=== PATIENT | female | born 1950 | race Caucasian/White ===

== ENCOUNTER 2024-10-25 15:55 | Outpatient (CLI) | payer MEDICARE, SELFPAY ==
--- NOTE | ~2024-10-25 | MM_ITS ---
EXAMINATION: MM screening [facility] BI w peret HISTORY: Screening TECHNIQUE: Craniocaudal and mediolateral oblique 3-D tomosynthesis images were obtained and synthetic 2-D images were generated. CAD analysis was submitted and interpreted. COMPARISON: Comparison to multiple prior studies sequentially, with oldest reviewed study dated 2011. BREAST PARENCHYMAL COMPOSITION: There are scattered areas of fibroglandular density. FINDINGS: There is no evidence of suspicious mass, calcification, or architectural distortion to sug gest malignancy in either breast. Scattered benign-appearing calcifications are present. IMPRESSION: 1. No mammographic evidence of malignancy. 2. Recommend routine screening mammography in one year. BI-RADS Category 2: Benign finding(s). Reviewed, dictated and finalized at location B.
--- OUTSIDE RECORDS SUMMARY | 2024-10-25 16:04 | XMS_ITS | Data Portability ---
Author Organization [facility], Main Office Address [address] [place] [address] Care Team Providers Care Manager Acquisition Name Role Phone JORGE PENN Primary Care Provider Assessment Encounter Date Assessment Date Assessment LastModified by Organization Details LastModified Time 08/18/2022 08/18/2022 D/w pt and her about her findings and further plan of care. Explained about different options for her. Meds as directed. OTC Benadryl allergy po q6-8hrs prn as directed. Routine skin care explained in detail. Educated about alarming symptoms to monitor at home and call us back or get checked in ED in that case. Pt verbalized understanding it. F/u with Ophtho in few days if any worsening symptoms/vision changes. F/u in few weeks as directed. [email or web address] Not available 08/18/2022 11:28:46 09/08/2022 09/08/2022 71 yo F with - WELL ADULT VISIT - HTN, Stable - HLD, Stable - GOUT, Stable - OSTEOPENIA - RT SHOULDER OA, Moderate; S/P ARTHROPLASTY - SPASMOIDIC DYSPHONIA - OVERWEIGHT Annual labs: 02/26/21. Annual labs: 11/11/19. Annual labs: 07/28/18. Annual labs: 06/09/17. X-ray Rt shoulder: 03/18/17. D/w pt in detail about her conditions, recent labs & imagines and further plan of care. Will do routine labs. All meds verified with pt. Meds as directed. Diet and exercise explained in detail. BP diary education given and advised to call us if any concerns. Fall risk precautions explained. Cont f/u with Ophtho as per schedule. Cont f/u with Ortho at [facility] as per schedule. Cont f/u with ENT at [facility] as per schedule. Cont f/u with Dr. Nolasco (Gyne) as per schedule. Cont f/u with GI at [facility] as per schedule. Pt has done PT, OT and ST. Pt declined for any prescription pain med. Pt has already seen speech specialist at [facility] and she doesn't want to got for injections. HM: WWE - 05/26, normal as per pt. Cont f/u with Gyne as per their recommendations. Mammo - 04/17/22, normal. Colonoscopy - 08/18/18, normal. Cont f/u with GI as per schedule (10 yrs). DEXA - 02/13/21, Osteopenia ++. Tdap - 11/16. Flu - 01/16/21. Pneumo - 11/22/19. Shingrix - At pharmacy/HD. F/u in 2-3 weeks. Annual labs in 09/26. Not available 09/08/2022 11:33:23 Plan of Treatment Reminders Order Date Submit Date Provider Last Modified By Organization Details Last Modified Time Details Appointments None recorded. Lab uric acid, serum or plasma 2022 023 [email or web address] Not available 3 17:37:15 HbA1c (hemoglobin A1c), blood 2022 023 [email or web address] Not available 3 17:37:14 CBC w/ auto diff 2022 023 LISA Not available 3 08:46:03 CMP, serum or plasma 2022 023 [email or web address] Not available 3 17:37:14 urinalysis complete, reflex culture 2022 023 [email or web address] Not available 3 17:37:14 lipid panel, serum 2022 023 [email or web address] Not available 3 17:37:15 TSH, serum, reflex free T4 2022 023 [email or web address] Not available 3 17:37:15 Referral None recorded. Procedures None recorded. Surgeries None recorded. Imaging MAMMO, screening, digital, bilateral 2023 024 [email or web address] Not available 4 08:51:14 Medication Orders Calcium 600 + D(3) 600 mg-10 mcg (400 unit) tablet 2022 023 LISA [id number], [address], [place], [id number], 11:35:14 Solu-Medrol (PF) 125 mg/2 mL solution for injection 2022 023 [email or web address] Not available 11:15:48 hydroxyzine HCl 25 mg tablet 2022 023 [email or web address] [facility] #[id number], [address], [place], [phone], 11:35:24 Patient TargetsNo targets recorded. Patient InstructionsNo instructions recorded. Reason for Referral None Reported. Results Created Date Observation Date Name Description Value Unit Range Abnormal Flag Note LastModifiedBy Organization Detail LastModifiedTime 08/21/19 22 08/20/2021 HEMOG LOBIN A1C HA1C 5.1 % 4.0-6. 0 Diabe aileen Carol keene Crite ab: <5.7% Consi stent with absen ce of diabe aileen 5.7-6 .4% Consi stent with incre ased risk for diabe aileen (pred iabet es) >OR=6 .5% Consi stent with diabe aileen REFER ENCE: Diabe aileen Care 2016, 39(Canales ppl.1 ):s13 -s22 Not Available [facility] ([facility]) [address], [place], [address], 08/20/2021 19:07:28 04/17/19 23 MAMMO , scree jassi, digit al, bilat eral [facility] [address], [place] [address] Patien t Name: CHERISE GOMEZ Access ion #: [id number] Sex: F : 1950 5 Locati on: RA2 Attend ing Physic josh: TRISTA PENN Orderi ng Physic josh: TRISTA PENN Exam Date: 023 8:58 AM Exam Name: DIGITA L MATA BILAT SCREEN Admitt ing Diagno sis(es ): RADIOL OGY REPORT - FINAL EXAM: MG DIGITA L MATA BILAT SCREEN HISTOR Y: screen ing 71-yea r-old female with no curren t breast compla ints. COMPAR RODRIGO: 2020, 2019, 2017 TECHNI QUE: Bilate ral CC and MLO views of the breast s were perfor med. Digita l Mammog dot images were obtain ed. CAD (compu ter assist ed detect ion) was utiliz ed. FINDIN GS: There are scatte red areas of fibrog landul ar densit y. No new masses , develo ping asymme tries, suspic ious calcif icatio ns, or tiffany ectura l distor tion are seen. Page 1 of 2 [facility] Lula kelley Name: CHERISE GOMEZ Access ion #: [id number] Sex: F : 1950 6 Exam Date: 023 8:58 AM Exam Name: DIGITA L MATA BILAT SCREEN Admitt ing Diagno sis(es ): IMPRES BONG: BIRADS 1: Assess ment comple te. Negati ve. Recomm end annual screen ing mammog dot. Accord ing to the [employer], yearly mammog katherine are recomm ended starti ng at age 40 and contin uing as long as the woman is in good health . Clinic al Breast Exam should be part of the period health exam-a bout every 3 years for women in their 20s and 30s and every year for women 40 and over. Breast self-e xam is an option for women in their 20s. Any breast change noted on the breast self-e xam she would be report ed prompt ly [facility]. A negati ve mammog dot report should not discou rage follow -up or biopsy of a clinic ally signif icant findin g and/or abnorm ality. Dense breast tissue may obscur e small neopla sms. This lula kelley has been entere d into a mammog dot remind er system with a target date for her next mammog carroll. Create d and electr onical ly signed by: Chet fritz MD Signed Date: 10:34 AM (CT) Dictat ed by: Chet fritz MD DD: 10:34 AM (CT) DT: 10:34 AM (CT) Page 2 of 2 [email or web address] [facility] ([facility]) [address] [place], [address], 08/18/2022 11:17:51 05/28/19 24 05/28/2023 MAMMO , scree jassi, digit al, bilat eral No observ ation record ed. [email or web address] [facility] [address] [place], [address], 06/02/2023 10:58:01 Result Notes Documentation Provider Name and Address Organization Details Recorded Time Mammo, Screening, Digital, Bilateral : [facility] [address] [place] [address] Patient Name: CHERISE GOMEZ Sex: F : 1950 Location: [facility] Attending Physician: JORGE PENN Ordering Physician: JORGE PENN Exam Date: 04/17/2022 8:58 AM Exam Name: MG DIGITAL MATA BILAT SCREEN Admitting Diagnosis(es): RADIOLOGY REPORT - FINAL EXAM: MG DIGITAL MATA BILAT SCREEN HISTORY: screening 71-year-old female with no current breast complaints. COMPARISON: 02/13/2021, 11/25/2019, 07/27/2017 TECHNIQUE: Bilateral CC and MLO views of the breasts were performed. Digital Mammography images were obtained. CAD (computer assisted detection) was utilized. FINDINGS: There are scattered areas of fibroglandular density. No new masses, developing asymmetries, suspicious calcifications, or architectural distortion are seen. Page 1 of 2 [facility] Patient Name: CHERISE GOMEZ Sex: F : 1950 Exam Date: 04/17/2022 8:58 AM Exam Name: MG DIGITAL MATA BILAT SCREEN Admitting Diagnosis(es): IMPRESSION: BIRADS 1: Assessment complete. Negative. Recommend annual screening mammography. According to the [employer], yearly mammograms are recommended starting at age 40 and continuing as long as the woman is in good health. Clinical Breast Exam should be part of the periodic health exam-about every 3 years for women in their 20s and 30s and every year for women 40 and over. Breast self-exam is an option for women in their 20s. Any breast change noted on the breast self-exam she would be reported promptly to the patient's health care provider. A negative mammography report should not discourage follow-up or biopsy of a clinically significant finding and/or abnormality. Dense breast tissue may obscure small neoplasms. This patient has been entered into a mammography reminder system with a target date for her next mammogram. Created and electronically signed by: Chet Jimenez MD Signed Date: 04/17/2022 10:34 AM (CT) Dictated by: Chet Jimenez MD (CT) (CT) Page 2 of 2 Jorge Penn MD [address] [place] [address], [phone], [facility] 08/18/2022 11:17:51 Problems Name Problem SNOMED Code Status Onset Date Resolution Date Notes Provider Name and Address Organization Details Recorded Time Laceratio n of hand 266557947 Completed Not Available [facility] 3 02:38:46 Spastic dysphonia 42754941 Active Not Available [facility] 3 08:17:41 Knee pain Completed Not Available [facility] 3 02:38:46 Contact dermatiti s 38839769 Completed Not Available [facility] 3 02:38:47 Eczema 20858110 Active Not Available [facility] 3 08:17:41 Pain of shoulder region 36392869 Completed Not Available [facility] 3 02:38:47 Pain of hip region 53346592 Completed Not Available [facility] 3 02:38:47 Essential hypertens ion 34667500 Completed Not Available [facility] 3 02:38:47 Disorder of the larynx 49575749 Active Not Available [facility] 3 08:17:41 Rhinitis 86103362 Completed Not Available [facility] 3 02:38:47 Pain of right shoulder joint 46799063501 000693 Active 2016 Not Available [facility] 3 08:17:41 Osteoarth ritis 328544260 Active 2017 Not Available [facility] 3 08:17:41 Hyperuric emia 20868701 Completed 201711/08/2019 Not Available [facility] 3 02:38:46 Dyslipide keira 208059089 Active 2017 Not Available [facility] 3 08:17:41 Hyperlipi demia 59099294 Active 2017 Not Available [facility] 3 08:17:41 Gout 66741759 Active 2018 Not Available [facility] 3 08:17:41 Overweigh t 181630889 Active 2019 Not Available [facility] 3 08:17:41 Hypertens eyad disorder 04091554 Active 2019 Not Available [facility] 3 08:17:41 Osteopeni a 897899809 Active 2020 Not Available [facility] 3 08:17:41 Impaired fasting glycemia 682796819 Active 2020 Not Available [facility] 3 08:17:41 Adult health examinati on Active 2021 Not Available [facility] 3 08:17:41 Contact dermatiti s caused by urushiol from [facility] 757451167 Active 2021 Not Available [facility] 3 08:17:41 Itching of skin 058981638 Active 2022 Not Available [facility] 3 08:17:41 Swelling of eyelid 890707353 Active 2022 Not Available [facility] 3 08:17:41 Screening for malignant neoplasm of breast Active 2023 AIMEE Carr [address] [facility], [facility] [address], [place], [address] , [facility] [place] [facility] 4 14:33:21 Notes:OSTEOARTHRITIS Problem Notes None recorded. Procedures Surgical History Date Name Laterality Status Provider Name and Address Organization Details Recorded Time 9 Hip surgery completed Sneha Sequeira RN [facility] [employer] [facility] 05/20/2023 14:18:11 9 Shoulder joint surgery completed Sneha Sequeira RN [facility] [employer] [facility] 05/20/2023 14:18:29 4 Back Surgeries completed Sneha Sequeira RN [facility] [employer] [facility] 05/20/2023 14:19:01 Imaging Results None recorded. Procedure Notes None recorded. Medical Equipment None Reported. Allergies No known drug allergies Medications Name Sig Start Date Stop Date Status Note LastModified by Organization Details LastModified Time losartan 50 mg tablet TAKE 1 TABLET BY MOUTH EVERY DAY active Not Available Not Available No t Available celecoxib 200 mg capsule Take 1 capsule every day by oral route with meals. active Not Available Not Available No t Available amoxicill in 500 mg capsule TAKE 4 CAPSULES BY MOUTH 1 HOUR PRIOR TO APPOINTM ENT 05/20 completed Not Available Not Available Not Available prednison e 10 mg tablet Take 1 tablet every day by oral route as directed for 7 days. active Not Available Not Available No t Available atorvasta tin 10 mg tablet TAKE 1 TABLET BY MOUTH EVERY NIGHT AT BEDTIME 2023 active Not Available Not Available Not Avai lable hydrocodo ne 5 mg-acetam inophen 325 mg tablet active Not Available Not Available Not Available allopurin ol 100 mg tablet TAKE 1 TABLET BY MOUTH EVERY DAY active Not Available Not Available No t Available triamtere ne 37.5 mg-hydroc hlorothia zide 25 mg capsule TAKE 1 CAPSULE BY MOUTH EVERY MORNING active Not Available Not Available No t Available triamcino lone acetonide 0.1 % topical cream APPLY A THIN LAYER TO THE AFFECTED AREA TWICE DAILY FOR 7 TO 10 DAYS active Not Available Not Available No t Available propranol ol 40 mg tablet Take 1 tablet twice a day by oral route as directed for 90 days. 02/02 completed Not Available Not Available Not Available Ear Wax Removal Drops 6.5 % INSTILL 3-4 DROPS INTO AFFECTED EAR(S) BY OTIC ROUTE 2 TIMES PER DAY 08/03 completed Not Available Not Available Not Available cephalexi n 500 mg capsule 11/02 completed Not Available Not Available Not Available polymyxin B sulfate 10,000 unit-trim ethoprim 1 mg/mL eye drops INSTILL 1 TO 2 DROPS IN OU Q 3 HOURS FOR 7 TO 10 DAYS active Not Available Not Available No t Available triamtere ne 37.5 mg-hydroc hlorothia zide 25 mg tablet 05/24 completed Not Available Not Available Not Available aspirin 81 mg chewable tablet Chew 1 tablet every day by oral route. 2012 active pt. stopped Not Available Not Available Not Available hydroxyzi ne HCl 25 mg tablet TAKE 1 TABLET BY MOUTH EVERY 6 TO 8 HOURS FOR 7 DAYS NEEDED 09/08 completed Not Available Not Available Not Available mupirocin 2 % topical ointment 02/02 completed Not Available Not Available Not Available Nasonex 50 mcg/actua tion Barstow Barstow 2 sprays every day by intranas al route. 2012 active Not Available Not Available Not Avai lable methylpre dnisolone 4 mg tablets in a dose pack Take by oral route as directed on pack. 09/08 completed Not Available Not Available Not Available propranol ol 20 mg tablet TAKE 1 TABLET BY MOUTH THREE TIMES DAILY DIRECTED active Not Available Not Available No t Available losartan 100 mg tablet TAKE 1 2 TABLET BY MOUTH ONCE DAILY active Not Available Not Available No t Available multivita min capsule 2012 active Not Available Not Available Not Avai lable oxycodone 5 mg tablet 07/12 completed Not Available Not Available Not Available Complete Multivita min tablet Take 1 tablet every day by oral route. 2018 active OTC Not Available Not Available Not Avai lable tizanidin e 2 mg capsule 1 tab/cap po q12hrs prn. 05/26 completed Not Available Not Available Not Available Fish Oil 1000 mg 2 times daily 07/12 completed Not Available Not Available Not Available Dyazide 2012 active Not Available Not Available Not Avai lable Glucosami ne Chondroit in MaxStr 1 tab twice daily 2012 active Not Available Not Available Not Avai lable Calcium 600 + D(3) 600 mg-10 mcg (400 unit) tablet 1 tab PO TWICE A DAY 2022 active Not Available Not Available Not Avai lable fenofibra te 54 mg tablet Take 1 tablet every day by oral route at bedtime for 30 days. 08/03 completed Not Available Not Available Not Available Calcium 500 + D (D3) 2012 active Not Available Not Available Not Avai lable GaviLyte- N 420 gram oral solution USE DIRECTED 11/02 completed Not Available Not Available Not Available Solu-Medr ol (PF) 125 mg/2 mL solution for injection Take 125 mg by injectio n route for 1 day. 09/08 completed Not Available Not Available Not Available Adult Aspirin Regimen 81 mg tablet,de layed release Take 1 tablet every day by oral route with meals for 90 days. 2016 active OTC Not Available Not Available Not Avai lable Afluria Qd 2019-20 (36 mos up)(PF)60 mcg (15 mcg x4)/0.5 mL IM syringe TO BE ADMINIST ERED BY PHARMACI ST FOR IMMUNIZA TION 02/02 completed Not Available Not Available Not Available ID NOW COVID-19 Test Kit TEST DIRECTED TODAY 06/05 completed Not Available Not Available Not Available Vitals Date Recorded Body height Body mass index (BMI) Body weight Oxygen saturation Oxygen saturation in Arterial blood by Pulse oximetry Body temperature Heart rate Systolic And Diastolic Provider Name and Address Organization Details Last Updated DateTime 4 167.64 cm 32.4 kg/m2 87004.0 7 g 98 % 98 % 98.2 [degF] 62 /min 122/80 mm[Hg] Sneha Sequeira RN [facility] 4 14:20:57 Date Recorded Body mass index (BMI) Body height Oxygen saturation Oxygen saturation in Arterial blood by Pulse oximetry Heart rate Respiratory rate Body temperature Body weight Systolic And Diastolic Provider Name and Address Organization Details Last Updated DateTime 2 30 kg/m2 167.64 cm 99 % 99 % 70 /min 16 /min 98.39 [degF] 11840.1 8 g 122/80 mm[Hg] Not Available [facility] 3 02:36:55 Date Recorded Body height Body mass index (BMI) Body weight Body temperature Heart rate Oxygen saturation Oxygen saturation in Arterial blood by Pulse oximetry Respiratory rate Systolic And Diastolic Provider Name and Address Organization Details Last Updated DateTime 3 167.64 cm 30.7 kg/m2 80439.5 5 g 97.4 [degF] 70 /min 98 % 98 % 16 /min 144/88 mm[Hg] Sneha Sequeira RN [facility] [employer] 3 11:16:23 Date Recorded Body mass index (BMI) Body height Oxygen saturation Oxygen saturation in Arterial blood by Pulse oximetry Heart rate Respiratory rate Body temperature Body weight Systolic And Diastolic Provider Name and Address Organization Details Last Updated DateTime 2 29.4 kg/m2 167.64 cm 97 % 97 % 88 /min 16 /min 98.4 [degF] 97293.8 1 g 120/80 mm[Hg] Not Available [facility] 3 02:36:56 Date Recorded Heart rate Systolic And Diastolic Provider Name and Address Organization Details Last Updated DateTime 09/08/2022 58 /min 154/78 mm[Hg] Jorge Penn MD [address] [place] [address], [phone], [facility] [employer] [facility] 09/08/2022 11:32:29 Date Recorded Body height Body mass index (BMI) Body weight Body temperature Oxygen saturation Oxygen saturation in Arterial blood by Pulse oximetry Provider Name and Address Organization Details Last Updated DateTime 3 167.64 cm 30.9 kg/m2 66881.8 9 g 97.7 [degF] 98 % 98 % Maryam Ryan MA [facility] [employer] [facility] 3 11:10:21 Social History Question Answer Notes LastModified by Organizat ion Details LastModified Time Tobacco Smoking Status Never Smoker Not Available [facility] 06/04/2022 02:28:54 Do You Have An Advance Directive? No MIGRATION.[id number] Information not available 06/04/2022 Do You Wear A Helmet When Biking? No MIGRATION.46793 70365 Information not available 06/04/2022 Are You Blind Or Do You Have Difficulty Seeing? No MIGRATION.87576 11718 Information not available 06/04/2022 What Is Your Level Of Caffeine Consumption? None Apple Juice And Milk MIGRATION.54134 52235 Information not available 06/04/2022 In The 14 Days Before Symptom Onset, Have You Had Close Contact With A Laboratory-confi rmed COVID-19 While That Case Was Ill? No MIGRATION.26689 66300 Information not available 06/04/2022 In The 14 Days Before Symptom Onset, Have You Had Close Contact With A Person Who Is Under Investigation For COVID-19 While That Person Was Ill? No MIGRATION.79905 [id number] Information not available 06/04/2022 Are You Deaf Or Do You Have Serious Difficulty Hearing? No MIGRATION.89407 45460 Information not available 06/04/2022 What Type Of Diet Are You Following? REGULAR MIGRATION.95811 40849 Information not available 06/04/2022 Have There Been Any Changes To Your Family Or Social Situation? No MIGRATION.30306 97683 Information not available 06/04/2022 Are There Any Guns Present In Your Home? No MIGRATION.19494 19620 Information not available 06/04/2022 Do You Use Insect Repellent Routinely? No MIGRATION.28541 36165 Information not available 06/04/2022 [facility] MIGR[facility].40965 56647 Information not available 06/04/2022 Do You Have A Medical Power Of Gas Station Supervisor? No MIGRATION.96090 84100 Information not available 06/04/2022 Do You Have Any Pets? Yes MIGRATION.78015 08465 Information not available 06/04/2022 What Is Your Relationship Status? MIGRATION.28118 91304 Information not available 06/04/2022 Do You Use Your Seat Belt Or Car Seat Routinely? Yes MIGRATION.17745 52837 Information not available 06/04/2022 Do You Have Smoke And Carbon Monoxide Detectors In Your Home? Yes MIGRATION.50121 13226 Information not available 06/04/2022 Are You Passively Exposed To Smoke? No MIGRATION.13486 01493 Information not available 06/04/2022 Are There Any Smokers In Your House? No MIGRATION.10055 19631 Information not available 06/04/2022 Do You Participate In Social Media? No MIGRATION.63681 33865 Information not available 06/04/2022 Do You Use Sunscreen Routinely? No MIGRATION.38376 37097 Information not available 06/04/2022 Has Tobacco Cessation Counseling Been Provided? No MIGRATION.99069 06600 Information not available 06/04/2022 Have You Recently Traveled Abroad? No MIGRATION.85613 95458 Information not available 06/04/2022 Do You Have Difficulty Walking Or Climbing Stairs? No MIGRATION.25104 29800 Information not available 06/04/2022 Are You Currently In School? No MIGRATION.21506 75263 Information not available 06/04/2022 Do You Have Any Dietary Restrictions? No MIGRATION.34762 27112 Information not available 06/04/2022 Sex: Female Functional Status Question Answer Note LastModified by Organizat ion Details LastModified Time Do you use any illicit or recreational drugs? No MIGRATION.[id number] 026 Information not available 06/04/2022 Do you or have you ever used any other forms of tobacco or nicotine? No MIGRATION.7269688 026 Information not available 06/04/2022 What is your level of alcohol consumption? None MIGRATION.9850584 026 Information not available 06/04/2022 Do you have transportation difficulties? No MIGRATION.6256578 026 Information not available 06/04/2022 Are you able to walk? YESWOREST MIGRATION.5640338 026 Information not available 06/04/2022 Do you have difficulty doing errands alone? No MIGRATION.1178347 026 Information not available 06/04/2022 Are you able to care for yourself? 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 No MIGRATION.8514330 026 Information not available 06/04/2022 What is your exercise level? Occasional MIGRATION.6737637 026 Information not available 06/04/2022 Mental Status Question Answer Note LastModified by Organizat ion Details LastModified Time Do you feel stressed (tense, restless, nervous, or anxious, or unable to sleep at night)? [id number] MIGRATION.[id number] Information not available 06/04/2022 Do you have difficulty concentrating, remembering or making decisions? No MIGRATION.31250263 26 Information not available 06/04/2022 Family History Relationship Description Onset Age of this Age Resolved Age Notes LastModified by Organization Details LastModified Time Mother Family history of malignant neoplasm [email or web address] Not available 2023 14:17:02 Mother Myocardial infarction [email or web address] Not available 05/20 14:17:12 Medical History No medical history recorded. Gynecological HistoryNo gynecological history recorded. Obstetrics History GPAL:G 0 P 0 0 0 0 Immunizations Vaccine Type Date Status Note Provider Nam e and Address Organization Details Recorded Time influenza, unspecified formulation 9 completed Not Available [facility] 12/15/2022 08:17:41 Tdap 3 completed Not Available [facility] 12/15/2022 08:17:41 Influenza, high-dose, quadrivalent, PF 1 completed Not Available [facility] 12/15/2022 08:17:41 Influenza, high-dose, quadrivalent, PF 0 completed Not Available [facility] 12/15/2022 08:17:41 pneumococcal polysaccharide PPV23 0 completed Not Available [facility] 12/15/2022 08:17:41 Past Encounters Encounter ID Performer Location Encounter Start Date Encounter Closed Date Diagnosis/Indication Diagnosis SNOMED-CT Code Diagnosis ICD10 Code Diagnosis Note [id number] [facility] [address] [place] [address] 06/21/2020 00:00:00 06/21/2020 10:19:34 [id number] [facility] [address] [place] [address] 01/16/2021 00:00:00 01/16/2021 13:26:11 [id number] Jorge Penn MD [address] [address] 03/05/2021 00:00:00 03/06/2021 18:09:47 [id number] Jorge Penn MD [address] [address] 06/05/2021 00:00:00 06/05/2021 10:45:12 [id number] Jorge Penn MD [address] [address] 09/05/2021 00:00:00 09/05/2021 10:25:48 [id number] Jorge Penn MD [address] [address] 08/18/2022 11:06:06 08/18/2022 11:36:00 Contact dermatitis caused by urushiol from [facility] [place] 414485868 L25.5 Itching of skin 15643613 0 L29.9 Swelling of eyelid 59741 7004 R22.0 Rt [id number] Jorge Penn MD [address] [address] 09/08/2022 11:00:05 09/08/2022 11:38:20 Adult health examination 578857200 Z00.00 Hyperlipidemia 00769879 E78.5 Hypertensive disorder 38 927252 I10 Osteoarthritis 155261159 M19.90 Osteopenia 467327979 M85 .80 Overweight 192626761 E66 .3 Pain of ri ght shoulder joint 5669930592 5270760 M25.511 Gout 92612123 M10.9 [id number] John G[address] MD [facility] [address] [facility] [place] [address] 05/20/2023 14:00:13 05/20/2023 14:36:50 Screening for malignant neoplasm of breast 473064765 Z12.39 Hyperlipidemia 59125146 E78.5 Hypertensive disorder 38 943256 I10 Osteoarthritis 100226307 M19.90 Osteopenia 993523518 M85 .80 Health Concerns Section Related Observation LastModified by Organization Detai ls LastModified Time None Recorded Concern Status LastModified by Organization Details LastModified Time None Recorded Advance Directives Directive N: Payers Insurance Date Sequence Insurance Name Policy Number Policy Coles Covered Member ID Coles Member ID Guarantor Name 04/20/2023 [facility] Cherise Gomez AETNA SR PLAN AETNA SR PLAN Cherise Patricia 05/17/2023 1 MEDICARE-MD (MEDICARE) Cherise Nieveskey [id number] Cherise Patricia 06/02/2023 2 [employer] (MEDICARE SUPPLEMENT) Cherise Gomez [id number] Cherise Nieveskey Notes Date Note Type Note Provider Name and Address Organization Details Recorded Time 08/18/2022 text/html ACV:Here with he r . C/o rash, puffiness and itching over her Rt side of eyes and face since last 4 days. Puffiness started from today. Pt did some gardening on last Crista and got exposure to poison [place] and on the same day, she got her 1st Shingles vaccine. Denies any insect bite. Pt was seen at yesterday for this and was given Medrol dose pack, but she has not picked it up yet. Last seen in 09/26. Jorge Penn MD [address], [facility] [address], [place], [address], [employer] 08/18/2022 11:29:49 09/08/2022 text/html Pt is here for h er annual exam. Doing overall well. Denies any concerns.Pt is not checking her BP at home. Pt has finished ST, PT and OT and now doing at home.Pt had Rt shoulder replacement done at [facility] and doing well with it. Pt has done PT for it and now doing it at home. Jorge Penn MD [address], [address], [place], [address], [email or web address] 09/08/2022 11:36:04 05/20/2023 text/html 2 HIPS REPLACED AND A SHOULDER EdAIMEE Cotter [address] [facility] [address], [place], [address], [place] [facility] 05/30/2023 10:30:02 OBGyn Episode No OBEpisode recorded.
--- OUTSIDE RECORDS SUMMARY | 2024-10-25 16:04 | XMS_ITS | Clinical Summary ---
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 Name Role Phone Unavailable Primary Care Provider Unavailabl e Social History Tobacco Use Types Packs/Day Years Used Date Smoking Tobacco: Never Assessed Comments Unknown Sex and Gender Information Value Date Recorded Sex Assigned at Not on file Legal Sex Female 7:14 PM CDT Gender Identity Not on file Sexual Orientation Not on file Plan of Treatment Health Maintenance Due Date Last Done Comments Colorectal Cancer Screening Colonoscopy (10 Years) 1950 Hepatitis C 12/26/1969 DTaP, Tdap and Td Vaccines ( 1 - Tdap) 12/26/1970 Mammogram Screening 1991 Pneumococcal Vaccine: 50+ Ye ars (1 of 1 - PCV) 12/26/2001 Zoster Vaccines (1 of 2) 12/26/2001 Dexa Scan (General) 12/26/2016 COVID-19 Vaccine ( - 2023-2 5 season) 2023 RSV Immunization or 60+ Years (1 - 1-dose 75+ series) 12/26/2026 Meningococcal B Vaccine Aged Out No l onger eligible based on patient's age to complete this topic Meningococcal Vaccine Aged Out No laura fish eligible based on patient's age to complete this topic RSV Immunizations Under 20 Months Aged Out No longer eligible based on patient's age to complete this topic
== END 2024-10-25 15:56 | disposition home or self-care (01) ==
PROVIDERS: PCP Family Medicine; Visit Provider Student in an Organized Health Care Education/Training Program
DX: Z12.31 Encounter for screening mammogram for malignant neoplasm of breast (principal)
CPT/HCPCS: 77063; 77067